=== PATIENT | female | born 1985 | race Caucasian/White ===

== ENCOUNTER 2020-08-22 10:15 | Outpatient (CLI) | payer OTHER ==
[2020-08-22 11:39] LABS: HCT - HEMATOCRIT 34.5 % (37.0-47.0); HGB - HEMOGLOBIN 11.5 g/dL (12.0-16.0); MEAN CORPUSCULAR HEMOGLOBIN 32.2 pg (27.0-31.0); MEAN CORPUSCULAR HGB CONC 33.3 g/dL (32.0-36.0); MEAN CORPUSCULAR VOLUME 96.6 fL (81.0-99.0); MEAN PLATELET VOLUME 9.7 fL (7.9-10.8); RED BLOOD COUNT 3.57 10^6/uL (4.20-5.40); RED CELL DISTRIBUTION WIDTH 12.6 % (12.0-15.0); WHITE BLOOD COUNT 9.5 x10^3/uL (4.8-10.8)
== END 2020-08-22 10:16 | disposition home or self-care (01) ==
LOC: LAB 10:15
PROVIDERS: ATTEND Advanced Practice Midwife
DX: Z34.00 Encounter for supervision of normal first pregnancy, unspecified trimester (principal)
CPT/HCPCS: 36415; 82950; 85027; 86850

== ENCOUNTER 2020-11-06 08:00 | Outpatient (CLI) | payer OTHER | END 2020-11-06 23:59 | disposition home or self-care (01) | LOC: LAB.WC 08:00 | PROVIDERS: ATTEND Nurse Practitioner Obstetrics & Gynecology | DX: Z36.85 Encounter for antenatal screening for Streptococcus B (principal) | CPT/HCPCS: 87797 ==

== ENCOUNTER 2020-11-28 22:37 | Inpatient (IN) | payer OTHER ==
[2020-11-28] MEDS ORDERED: TERBUTALINE 1 MG/ML VIAL SUBQ ONE ×2 (23:00→23:40)
[2020-11-28] MEDS ORDERED: LACTATED RINGERS 1,000 ML IV ONE (23:09)
--- NOTE | 2020-11-28 23:37 | HISTORY & PHYSICAL EXAMINATION ---
Admit History - Visit Reason Visit Reason: Contractions, Membranes rupture - : 1 Parity: 0 Premature: 0 Ectopic: 0 : 0 Care: positive: [facility] Risk/History: positive: None Complications This : positive: None Smoking Status: Never smoker - Mother's Labs Mother's Blood Type: positive: O Mother's RH: positive: Negative GBS: positive: Group B Step Negative Rubella Status: positive: Immune Review of Systems - Constitutional Constitutional: denies: Fever, Chills, Malaise - Eyes Eyes: denies: Blurred vision, Spots in vision, Dipolpia - Cardiovascular Cariovascular: denies: Chest pain, Edema - Respiratory Respiratory: denies: Cough, SOB at rest - Gastrointestinal Gastrointestinal: denies: Change in bowel habits - Integumentary Integumentary: denies: Rash, Pruritis - Neurological Neurological: denies: Headache Physical - Abdominal Exam Contraction Frequency (min/apart): 2-4 Contraction Intensity: positive: Moderate Uterine Resting Tone: positive: Soft - Monitoring Heart Rate Baseline: 140 Strip Review: positive: Category II - Presentation Presentation: positive: Vertex - Vaginal Exam Membranes: positive: Membranes ruptured Dilation (in cm): 3 Effacement (%): 80 Station: positive: -3 Cervical Position: positive: Posterior - Speculum Exam Speculum Exam Performed: positive: No Findings: positive: Gross leak Plan for Labor - Plan For Labor I expect patient to be DC'd or transferred within 96 hours.: Yes Plan for Labor: Patito is a 35yo @ 40.1wks gestation by 11wk U/S dates (unknown LMP) who presents to [facility] with c/o large gush of fluid that occurred at approximately 2200 this evening. She denied contractions initially but since her arrival she states they have increased in frequency and intensity and she is breathing through contractions. She denies vaginal bleeding. She denies feeling movement since rupture of membranes. She is supported by her partner Jw today. She has been a patient of [facility] since her transfer of care from [place] in [place]. She has received consistent care through the duration of her which has remained uncomplicated. She is noted to be Rh negative and received Rhogam per protocol at 28wks. Dating criteria: LMP unknown Initial U/S @ 11wks dates with NAHID 11/26/2020 Serial exams - agree OB Hx: G1: Current Medications: PNV; wellbutrin XL 150mg PO daily Allergies: Bactrim course: Initial U/S:US at ED visit 04/25/2020 NOT c/w LMP NAHID 11/27/2020 FINAL NAHID: 11/27/2020 O neg/Rubella IMMUNE RHOGAM- 09/11/2020 antibody neg 08/22/2020 VZV: history of - titer needed ordered 10/10 Hep C- Ordered 10/10 Genetic testing:[place] Neg (male) AFP Neg FAS: . Anterior placenta. MEGHAN wnl. Growth is reported as "concordant"Cord insertion 1.1cm from placental edge Glucola A1c 4.7- 1HR GTT 124 Influenza: declined TDAP 09/11/2020 COVID vaccine: #1 05/25/20 #2 - 06/15/20 GBS @ 37.0wks-NEGATIVE HSV: denies self and partner Breast pump Rx 09/11/2020 MOD: . Jw. Baby BOY: Byron Leroy; UNMEDICATED pp contraception: nearly 36, possibly wants more children, discussed spacing, hesitant to use hormonal method and wants to decide . Discussed contraceptive benefits of . pap: 2016- wnl. Will accept Physical exam: Normocephalic, atraumatic Heart RRR w/o M/G/R Lungs CTAB Abdomen gravid, soft, nontender FHR baseline 140s, moderate variability, no accels, recurrent late decelerations Contractions palpate moderate every 2-4 minutes with soft resting tone SVE 3/80/-3, posterior. Vertex. Continues to leak clear fluid Bilateral LE's trace edema Assessment: 35yo @ 40.1wks gestation SROM x 2 hours FHR Category II GBS neg Rh neg Plan: Admit for active management. IV fluid bolus Notified bindery production manager physician of category II heart rate tracing Terbutaline administered for cessation of contractions. Amnioinfusion initiated. beet worker physician presenting to evaluate patient.
[2020-11-28] MEDS ORDERED: SODIUM CHLORIDE 0.9% 1,000 ML IV ONE (23:40)
[2020-11-28] MEDS ORDERED: LACTATED RINGERS 1,000 ML IV SCH ×2 (23:45)
[2020-11-28] MEDS ORDERED: OXYTOCIN 10 UNIT/ML VIAL IM PRN (23:48)
[2020-11-28] MEDS ORDERED: METHYLERGONOVINE 0.2 MG/ML VIAL IM PRN (23:48)
[2020-11-28] MEDS ORDERED: CARBOPROST TROMETHAMINE 250 MCG/ML AMP IM PRN (23:48)
[2020-11-28] MEDS ORDERED: SODIUM CHLORIDE FLUSH 0.9% 10 ML SYRINGE IVP PRN (23:48)
[2020-11-28] MEDS ORDERED: LIDOCAINE-MPF 1% 30 ML VIAL ID PRN (23:48)
[2020-11-28] MEDS ORDERED: TRANEXAMIC ACID IN NACL 1,000 MG/100 ML BAG IV PRN (23:48)
[2020-11-28] MEDS ORDERED: OXYTOCIN/SODIUM CHLORIDE 500 ML IV PRN (23:48)
[2020-11-28] MEDS ORDERED: miSOPROStoL 200 MCG TABLET BC PRN (23:48)
[2020-11-28 23:58] LABS: BASOPHILS # (AUTO) 0.1 10^3/uL (0.0-0.1); BASOPHILS % (AUTO) 0.4 %; EOSINOPHILS # (AUTO) 0.1 10^3/uL (0.0-0.7); EOSINOPHILS % (AUTO) 0.8 %; HCT - HEMATOCRIT 37.8 % (37.0-47.0); HGB - HEMOGLOBIN 12.8 g/dL (12.0-16.0); LYMPHOCYTES # (AUTO) 2.1 10^3/uL (1.5-3.5); LYMPHOCYTES % (AUTO) 17.1 %; MEAN CORPUSCULAR HEMOGLOBIN 30.7 pg (27.0-31.0); MEAN CORPUSCULAR HGB CONC 33.9 g/dL (32.0-36.0); MEAN CORPUSCULAR VOLUME 90.6 fL (81.0-99.0); MEAN PLATELET VOLUME 10.8 fL (7.9-10.8); MONOCYTES % (AUTO) 8.3 %; NEUTROPHILS # (AUTO) 9.1 10^3/uL (1.5-6.6); NEUTROPHILS % (AUTO) 72.9 %; PLT - PLATELET COUNT 293 10^3/uL (130-450); RED BLOOD COUNT 4.17 10^6/uL (4.20-5.40); RED CELL DISTRIBUTION WIDTH 13.9 % (12.0-15.0); WHITE BLOOD COUNT 12.5 x10^3/uL (4.8-10.8)
[2020-11-29] MEDS ORDERED: SODIUM CHLORIDE FLUSH 0.9% 10 ML SYRINGE IVP SCH ×2 (01:00→17:00)
[2020-11-29] MEDS: TERBUTALINE 1 MG/ML VIAL SUBQ PRN ×2 (01:03→05:44)
--- NOTE | 2020-11-29 04:05 | PROVIDER PROGRESS NOTE ---
Labor Progress Note - Uterine Monitoring Uterine Monitoring Mode: positive: External toco Contraction Frequency (min/apart): 5-7 Contraction Intensity: positive: Mild Uterine Resting Tone: positive: Soft - Monitoring Monitor Mode: positive: External ultrasound Heart Rate Baseline: 130 Heart Rate Variability: positive: Moderate (6-25 bmp) Decelerations: positive: Late, Intermittent (<50% x20 min) Strip Review: positive: Category II - Labor Progress Note Labor Progress Note/Additional Text: S: Pt states she is feeling at peace with the decision to proceed with a vaginal delivery if indicated however also feels very reassured that her baby seems to have improved over the past hour. She feels her contractions are increasing in intensity but seemed to be spacing out more which correlates with tocometry. Her mood is good and she feels she will be able to rest and desires to attempt to take a nap at this time. Her Jw is supportive at the bedside and also intends to rest. O: FHR baseline 130s at present, moderate variability, no accels, intermittent late decelerations however overall reassuring at this time and significantly improved with intrauterine resuscitative measures. Contractions palpate moderate every 5-7 minutes with soft resting tone SVE deferred at this time (last SVE 3/80/-3, posterior) SROM x 6 hours Amnioinfusion currently running at 200/hr maintenance following initial 250 bolus A: 35yo @ 40.2 wks gestation by 11wk U/S FHR Category II - overall reassuring at this time GBS neg Rh negative P: Continuous monitoring Encouraged pt to rest. Discussed proceeding with delivery if terbutaline is needed again and pt agrees with that plan. Reviewed plan of care with vitreo retinal surgeon physician who is in agreement. Will notify vitreo retinal surgeon physician if FHR develops recurrent decelerations. Pt verbalized understanding and agrees to above plan. She denies further questions or concerns at this time.
[2020-11-29] MEDS ORDERED: CITRIC ACID/SODIUM CITRATE 15 ML UDC PO ONE (06:34)
--- NOTE | 2020-11-29 06:35 | PROVIDER PROGRESS NOTE ---
Labor Progress Note - Uterine Monitoring Uterine Monitoring Mode: positive: External toco Contraction Frequency (min/apart): 5-8 Contraction Intensity: positive: Moderate Uterine Resting Tone: positive: Soft - Monitoring Monitor Mode: positive: External ultrasound Heart Rate Baseline: 140 Heart Rate Variability: positive: Moderate (6-25 bmp) Accelerations: positive: Absent Decelerations: positive: Late, Variable, Intermittent (<50% x20 min) Strip Review: positive: Category II - Vaginal Exam Dilation (in cm): 3-4 Effacement (%): 90 Station: -2 Cervical Position: Midposition - Labor Progress Note Labor Progress Note/Additional Text: S: Feeling contractions but tolerating them very well and is able to talk through them and is coping very well. She wants to try to get in the tub to relax and understands we need to be able to continuously monitor her baby. She is accepting of a delivery if needed. She was able to get a little nap in and states she does not feel super tired and will be unable to sleep at this time. Her Jw is supportive at the bedside. O: FHR baseline 130s, moderate variability, no accels, recurrent late decelerations. SVE 3-4/90/-2, midposition. Vertex SROM x 8.5hrs - recent development of moderate meconium A: 35yo 2 40.2wks gestation by FHR Category II GBS neg Rh neg P: Discussed recommendation for delivery with pt who is in agreement with plan. Care handed to regional vice president life sales physician for management and continued plan of care. Proceed with delivery.
[2020-11-29] MEDS ORDERED: fentaNYL 100 MCG/2 ML VIAL ONE (06:57)
[2020-11-29] MEDS ORDERED: MORPHINE PF 5 MG/10 ML VIAL ONE (06:57)
[2020-11-29] MEDS ORDERED: OXYTOCIN 10 UNIT/ML VIAL ONE ×2 (06:57→09:03)
[2020-11-29] MEDS ORDERED: ONDANSETRON 4 MG/2 ML VIAL ONE (07:01)
--- NOTE | 2020-11-29 07:09 | ANESTHESIA ---
Pre-Anesthesia VS, & Labs - Diagnosis active labor with decels - Procedure C/Section Vital Signs: Temp Pulse Resp BP Pulse Ox 37.3 C 89 19 105/73 11/28/20 23:07 11/28/20 23:07 11/28/20 23:07 11/28/20 23:07 Height: 5 ft 6 in Weight (kg): 85.275 kg Body Mass Index: 30.3 BMI Classification: Obese - NPO >8 hours - Is Patient ?: Yes - Lab Results Current Lab Results: Laboratory Tests 11/28/20 23:15: WBC 12.5 H, RBC 4.17 L, Hgb 12.8, Hct 37.8, MCV 90.6, MCH 30.7, MCHC 33.9, RDW 13.9, Plt Count 293, MPV 10.8, Neut # (Auto) 9.1 H, Lymph # (Auto) 2.1, [place] # (Auto) 1.0, Eos # (Auto) 0.1, Baso # (Auto) 0.1, Absolute Nucleated RBC 0.00, Nucleated RBC % 0.0 11/28/20 23:15: Blood Type O NEGATIVE, Antibody Screen POSITIVE, Antibody Identification Anti-D Fish Bones: 11/28/20 23:15 Home Medications and Allergies Active Medications Carboprost Tromethamine (Carboprost Tromethamine 250 Mcg/Ml Amp) 250 mcg IM Q15M PRN PRN Reason: Step 4: Hemorrhage protocol Stop: 12/03/20 23:50 Lactated Ringer's (Lr) 1,000 mls @ 125 mls/hr IV .Q8H [facility] Last Admin: 11/29/20 05:43 Dose: 125 mls/hr Documented by: Lactated Ringer's (Lr) 1,000 mls @ 150 mls/hr IV .Q6H40M [facility] Last Admin: 11/29/20 04:03 Dose: 200 mls/hr Documented by: Oxytocin/Sodium Chloride (Pitocin/Sodium Chloride) 500 mls @ 999 mls/hr IV PRN PRN; Protocol PRN Reason: POST- HEMORR PREVENTION Stop: 12/03/20 23:50 Tranexamic Acid (Tranexamic 1,000 Mg/100ml-Nacl) 1,000 mg in 100 mls @ 600 mls/hr IV .ONCE PRN PRN Reason: EBL >1200mL and within 3hr Stop: 12/03/20 23:50 Lidocaine HCl (Lidocaine-Mpf 1% 30 Ml Vial) 30 ml ID .ONCE PRN PRN Reason: PERINEAL REPAIR Stop: 12/03/20 23:50 Methylergonovine Maleate (Methylergonovine 0.2 Mg/Ml Vial) 0.2 mg IM .ONCE PRN PRN Reason: Step 2: Hemorrhage protocol Stop: 12/03/20 23:50 Misoprostol (Misoprostol 200 Mcg Tablet) 800 mcg BC .ONCE PRN PRN Reason: Step 3: Hemorrhage protocol Stop: 12/03/20 23:50 Oxytocin (Oxytocin 10 Unit/Ml Vial) 10 unit IM .ONCE PRN PRN Reason: Step one: If no IV access Stop: 12/03/20 23:50 Sodium Chloride (Sodium Chloride Flush 0.9% 10 Ml Syringe) 10 ml IVP PRN PRN PRN Reason: NEEDED PER PROVIDER ORDERS Sodium Chloride (Sodium Chloride Flush 0.9% 10 Ml Syringe) 10 ml IVP 0100,0900,1700 HAWK Terbutaline Sulfate (Terbutaline 1 Mg/Ml Vial) 0.25 mg SUBQ PRN PRN PRN Reason: UC mgmnt Last Admin: 11/29/20 05:44 Dose: 0.25 mg Documented by: Allergies/Adverse Reactions: Allergies Allergy/AdvReac Type Severity Reaction Status Date / Time sulfamethoxazole Allergy Unknown Verified 11/29/20 02:15 [From Bactrim] trimethoprim [From Bactrim] Allergy Unknown Verified 11/29/20 02:15 Anes History & Medical History - Anesthetic History Anesthesia Complications: reports: No previous complications Family history of Anesthesia Complications: Denies Family history of Malignant Hyperthermia: Denies - Medical History Cardiovascular: reports: None Pulmonary: reports: None Gastrointestinal: reports: None Smoking Status: Never smoker - Obstetrical History : 1 Parity: 0 Events: reports: None Complications: reports: None Exam General: Alert, Oriented x3, Cooperative Dental: WNL Mouth Openin Fingerbreadth Neck Mobility: Normal Mallampati classification: I Thyromental Distance: 4-6 cm Respiratory: Lungs clear Cardiovascular: Regular rate Plan Anesthesia Type: Spinal (discussed GETA as back-up) Consent for Procedure(s) Verified and Reviewed: Yes Code Status: Attempt Resuscitation ASA classification: 2-Mild systemic disease Is this case an emergency?: Yes
--- NOTE | 2020-11-29 07:11 | PROVIDER PROGRESS NOTE ---
Subjective - Prog Note Date Prog Note Date: 11/29/20 Prog Note Time: 07:01 - Subjective Subjective: Patito is a 35yo @ 40+2 wks gestation by 11wk U/S dates (unknown LMP) who presents to [facility] with c/o large gush of fluid that occurred at a pproximately 2200 on 11/28/20. Followed by Midwifery service. At admit, she denied contractions initially but since her arrival she stated they have increased in frequency and intensity and she is breathing through contractions. She denies vaginal bleeding. She denies feeling movement since rupture of membranes. She is supported by her partner Jw today. She has been a patient of [facility] since her transfer of care from [place] in [place]. She has received consistent care through the duration of her which has remained uncomplicated. She is noted to be Rh negative and received Rhogam per protocol at 28wks. Shortly after admission, the tracing started to show recurrent decels corresponding to contractions. She was 3 cm dilated and no palpable cord. Clear fluid. IUPC had been placed and patient was undergoing amnioinfusion and administration of terbutaline. When contractions ceased, tracing returned to a category I tracing. CNM and MD discussed the possibility of at that time with patient. While was not indicated urgently at that time, we discussed that status could change rapidly. For that reason, we reviewed R/B/A to and written informed consent was obtained so that we could convert rapidly to surgical delivery. After a period of decreased contractions, EFM returned to a category I tracing. When contractions started again, Cat I tracing was maintained for about 2 hours. At that time, recurrent decels emerged and were present for most contractions. No significant change in cervical exam at that time. Obstetrics was consulted and the decision was made to proceed with primary for intolerance of labor. Patient and partner were in agreement. OR team activated for delivery. Objective - Vital Signs/Intake & Output Vital Signs: Vital Signs x48h Temp Pulse Resp BP 11/28/20 23:07 99.1 F 89 19 105/73 Intake & Output: Intake & Output 11/26/20 11/27/20 11/28/20 11/29/20 23:59 23:59 23:59 23:59 Intake Total 1000 Output Total 2 Balance 1000 -2 - Lab Results Fish Bones: 11/28/20 23:15 Other Labs: Lab Results x24hrs 11/28/20 11/28/20 Range/Units 23:15 23:15 WBC 12.5 H (4.8-10.8) x10^3/uL RBC 4.17 L (4.20-5.40) 10^6/uL Hgb 12.8 (12.0-16.0) g/dL Hct 37.8 (37.0-47.0) % MCV 90.6 (81.0-99.0) fL MCH 30.7 (27.0-31.0) pg MCHC 33.9 (32.0-36.0) g/dL RDW 13.9 (12.0-15.0) % Plt Count 293 (130-450) 10^3/uL MPV 10.8 (7.9-10.8) fL Neut # (Auto) 9.1 H (1.5-6.6) 10^3/uL Lymph # (Auto) 2.1 (1.5-3.5) 10^3/uL Grant # (Auto) 1.0 (0.0-1.0) 10^3/uL Eos # (Auto) 0.1 (0.0-0.7) 10^3/uL Baso # (Auto) 0.1 (0.0-0.1) 10^3/uL Absolute Nucleated RBC 0.00 x10^3/uL Nucleated RBC % 0.0 /100WBC Blood Type O NEGATIVE Antibody Screen POSITIVE Antibody Identification Anti-D
[2020-11-29] MEDS ORDERED: NALBUPHINE 10 MG/ML AMP IVP PRN ×2 (07:45→07:46)
[2020-11-29] MEDS ORDERED: ePHEDrine 50 MG/ML VIAL IVP PRN ×2 (07:45→07:46)
[2020-11-29] MEDS ORDERED: MORPHINE PF 5 MG/10 ML VIAL IT ONE (07:45)
[2020-11-29] MEDS ORDERED: NALOXONE 0.4 MG/ML VIAL IVP PRN ×2 (07:45→07:46)
[2020-11-29] MEDS ORDERED: ONDANSETRON 4 MG/2 ML VIAL IVP PRN ×2 (07:45→07:46)
[2020-11-29] MEDS ORDERED: diphenhydrAMINE INJ 50 MG/ML VIAL IVP PRN ×2 (07:45→07:46)
[2020-11-29] MEDS ORDERED: METOCLOPRAMIDE 10 MG/2 ML VIAL IVP PRN ×2 (07:45→07:46)
[2020-11-29] MEDS ORDERED: fentaNYL 100 MCG/2 ML VIAL IT ONE (07:45)
[2020-11-29] MEDS ORDERED: KETOROLAC 30 MG/ML VIAL ONE (08:31)
[2020-11-29] MEDS ORDERED: BUPIVACAINE 0.25% PF 30 ML VIAL ONE (08:37)
[2020-11-29] MEDS ORDERED: BUPIVACAINE 0.25% PF 30 ML VIAL SUBQ ONE ×2 (08:51)
[2020-11-29] MEDS ORDERED: LACTATED RINGERS 1,000 ML IV ONE (09:16)
[2020-11-29] MEDS ORDERED: OXYTOCIN/SODIUM CHLORIDE 500 ML IV PRN (09:20)
[2020-11-29] MEDS ORDERED: SIMETHICONE CHEW 80 MG TABLET PO PRN (09:20)
[2020-11-29] MEDS ORDERED: SODIUM CHLORIDE FLUSH 0.9% 10 ML SYRINGE IVP PRN (09:20)
[2020-11-29] MEDS ORDERED: ONDANSETRON ODT 4 MG TABLET TL PRN (09:20)
--- NOTE | 2020-11-29 09:21 | ANESTHESIA POST OP EVALUATION ---
Anesthesia Post Eval - Post Anesthesia Eval Vitals: Last Vital Signs Temp 37.3 C 11/28/20 23:07 Pulse 89 11/28/20 23:07 Resp 19 11/28/20 23:07 BP 105/73 11/28/20 23:07 Pulse Ox CV Function Including HR & BP: Stable Pain Control: Satisfactory Nausea & Vomiting: Negative Mental Status: Baseline Respiratory Status: Airway Patent Hydration Status: Satisfactory Anesthesia Complications: None
--- NOTE | 2020-11-29 09:23 | OPERATIVE REPORT ---
Operative Report - General Admit Date: 11/28/20 Procedure Date: 11/29/20 Planned Procedure: Primary low transverse Pre-Op Diagnosis: intolerance of labor, IUP at 40+4 wga, SROM Procedure Performed: Primary low transverse Post Op Diagnosis: Same and delivery of term gestation; complex nuchal cord - Procedure Note Primary Surgeon: Kesha Nicholson MD Secondary Surgeon: YANDY Cordova CNM Anesthesia Provider: Rg Armenta CRNA with ELYSE Restrepo Anesthesia Technique: Spinal Pathology: Placenta for discard/to patient for home management IV Fluids (mL): 2,000 Estimated Blood Loss (mL): 750 Urine Output (mL): 150 Indications: Patito is a 35yo @ 40+2 wks gestation by 11wk U/S dates (unknown LMP) who presents to [facility] with c/o large gush of fluid that occurred at approximately 2200 on 11/28/20. Followed by Midwifery service. At admit, she denied contractions initially but since her arrival she stated they have increased in frequency and intensity and she is breathing through contractions. She denies vaginal bleeding. She denies feeling movement since rupture of membranes. She is supported by her partner Jw today. She has been a patient of [facility] since her transfer of care from [place] in [place]. She has received consistent care through the duration of her which has remained uncomplicated. She is noted to be Rh negative and received Rhogam per protocol at 28wks. Shortly after admission, the tracing started to show recurrent decels corresponding to contractions. She was 3 cm dilated and no palpable cord. Clear fluid. IUPC had been placed and patient was undergoing amnioinfusion and administration of terbutaline. When contractions ceased, tracing returned to a category I tracing. HAZEL and discussed the possibility of at that time with patient. While was not indicated urgently at that time, we discussed that status could change rapidly. For that reason, we reviewed R/B/A to and written informed consent was obtained so that we could convert rapidly to surgical delivery. After a period of decreased contractions, EFM returned to a category I tracing. When contractions started again, Cat I tracing was maintained for about 2 hours. At that time, recurrent decels emerged and were present for most contractions. No significant change in cervical exam at that time. Obstetrics was consulted and the decision was made to proceed with primary for intolerance of labor. Patient and partner were in agreement. OR team activated for delivery. Findings: Male infant in vertex presentation with double nuchal cord, bandolier cord, and the cord further wrapped around the left arm. Weight pending. Normal appearing uterus, tubes, and ovaries. Complications: none - Other Other Information/Narrative: Risks benefits and alternatives of the procedure were discussed. Written informed consent was obtained. Patient was taken to the operating room where spinal anesthesia was placed and found to be adequate. She was prepped and draped in the usual sterile fashion in the dorsal supine position with a leftward tilt. Crocker catheter was in place. SCDs were in place and activated. Cefazolin 2 g IV was given as a preoperative antibiotic. Preoperative timeout was performed. A Pfannenstiel incision was made in the skin with a scalpel and carried through the underlying layer of fascia in a combination of sharp and blunt dissection. The fascia was incised in the midline, and the incision was extended laterally with the Desai scissors. The superior aspect of the fascial incision was grasped with the [place] clamps, elevated, and the underlying rectus muscles were dissected off bluntly and sharply using the Desai scissors. Attention was then turned to the inferior aspect of the incision which in a similar fashion was grasped, tented up with [place] clamps, and the underlying rectus muscles dissected off bluntly and sharply using Desai scissors. The rectus muscles were then in the midline. The peritoneum was identified, tented up, and entered bluntly. The peritoneal incision was extended superiorly and inferiorly with good visualization of the bladder. The bladder that blade was then inserted. A bladder flap was not created. The lower uterine segment of the uterus was identified, and incised in a transverse fashion with a scalpel. The uterus was entered bluntly. The uterine incision was extended in a craniocaudal fashion by manual stretch. The bladder blade was removed. The was delivered from from vertex position. Baby was wrapped in a warm sterile towel. Delayed cord clamping was performed. After cessation of pulsations, the cord was clamped x2 and cut. The infant was handed off to the waiting pediatricians. The placenta was removed with manual expression. The uterus was NOT exteriorized and cleared of all clots cand debris via manual swipe using Ray-Philipp x2. The uterine incision was then repaired in a running locked fashion using 0 Vicryl suture. The incision was reinforced with a running imbricating layer again using 0-Vicryl suture. Excellent hemostasis was obtained. The gutters were cleared of all clots and debris. The pelvis was irrigated with sloppy wet lap sponges. The uterine defect was well visualized in normal anatomic position it was noted again to be hemostatic. The peritoneum was then reapproximated with 2-0 Vicryl in a running fashion. The rectus muscles were then reapproximated using interrupted [id number] sutures using 2-0 Chromic. Good hemostasis was noted. The fascia was then closed using 0 Vicryl in a running fashion starting from the left lateral edge to the midline. A second suture was used to close the fascia in a running fashion starting from the right lateral edge and meeting in the midline, again using 0-Vicryl. The subcutaneous tissue was then irrigated and closed using 2-0 chromic in a running subcutaneous suture. Skin was closed in a running subcuticular suture using 4-0 Monocryl. Steri-Strips were applied to reinforce the incision and dressing was applied. Procedure was well-tolerated and without complication. Sponge lap and needle counts were correct x2. Patient was taken to recovery room in stable condition. Paz Polk CNM, assisted with retraction, delivery of the , and suturing.
[2020-11-29] MEDS ORDERED: LACTATED RINGERS 1,000 ML IV SCH (10:00)
[2020-11-29] MEDS: ACETAMINOPHEN 500 MG TABLET PO SCH ×2 (11:12→17:04)
[2020-11-29] MEDS: KETOROLAC 15 MG/ML VIAL IVP SCH ×3 (11:12→21:01)
--- NOTE | 2020-11-29 15:25 | PROVIDER PROGRESS NOTE ---
Subjective - Prog Note Date Prog Note Date: 11/29/20 Prog Note Time: 15:24 - Subjective Subjective: Patientis POD#0 s/p primary LTCS for intoleranceof labor Doing well Pain well managed Tolerating po Crocker remains in place; UOP adequate Has not yet ambulated Pressure dressing placed for oozing but also reflecs 20 cc of bupivicaine injected immediately prior to placing dressing Cont with routine post op care Objective - Vital Signs/Intake & Output Vital Signs: Vital Signs x48h Temp Pulse Pulse Pulse Resp BP BP 11/29/20 11:58 98.6 F 73 16 92/64 11/29/20 11:00 60 99 H 90/58 L 11/29/20 10:30 69 16 95/58 L 11/29/20 09:59 97.7 F 70 17 94/61 11/29/20 09:45 73 19 97/67 11/29/20 09:38 67 22 101/70 11/29/20 09:33 98.8 F 74 14 106/70 11/29/20 09:29 70 20 103/69 11/29/20 09:20 70 17 96/70 11/29/20 09:16 98.6 F 73 18 92/63 Pulse Ox 11/29/20 11:58 100 11/29/20 11:00 11/29/20 10:30 99 11/29/20 09:59 99 11/29/20 09:45 99 11/29/20 09:38 99 11/29/20 09:33 100 11/29/20 09:29 100 11/29/20 09:20 100 11/29/20 09:16 100 Intake & Output: Intake & Output 11/26/20 11/27/20 11/28/20 11/29/20 23:59 23:59 23:59 23:59 Intake Total 1000 120 Output Total 462 Balance 1000 -342 - Lab Results Fish Bones: 11/28/20 23:15 Other Labs: Lab Results x24hrs 11/29/20 11/28/20 11/28/20 Range/Units 11:40 23:15 23:15 WBC 12.5 H (4.8-10.8) x10^3/uL RBC 4.17 L (4.20-5.40) 10^6/uL Hgb 12.8 (12.0-16.0) g/dL Hct 37.8 (37.0-47.0) % MCV 90.6 (81.0-99.0) fL MCH 30.7 (27.0-31.0) pg MCHC 33.9 (32.0-36.0) g/dL RDW 13.9 (12.0-15.0) % Plt Count 293 (130-450) 10^3/uL MPV 10.8 (7.9-10.8) fL Neut # (Auto) 9.1 H (1.5-6.6) 10^3/uL Lymph # (Auto) 2.1 (1.5-3.5) 10^3/uL Pope # (Auto) 1.0 (0.0-1.0) 10^3/uL Eos # (Auto) 0.1 (0.0-0.7) 10^3/uL Baso # (Auto) 0.1 (0.0-0.1) 10^3/uL Absolute Nucleated RBC 0.00 x10^3/uL Nucleated RBC % 0.0 /100WBC Blood Type O NEGATIVE O NEGATIVE Weak D (Du) WEAK-D NEGATIVE Antibody Screen POSITIVE Antibody Identification Anti-D Maternal Bleed NEGATIVE (NEGATIVE)
[2020-11-29] MEDS ORDERED: RHO(D) IMMUNE GLOBULIN 300 MCG SYRINGE IVP ONE (15:31)
[2020-11-29] MEDS: DOCUSATE SODIUM 100 MG CAPSULE PO SCH (21:01)
[2020-11-30] MEDS: ACETAMINOPHEN 500 MG TABLET PO SCH ×3 (01:00→16:56)
[2020-11-30] MEDS: KETOROLAC 15 MG/ML VIAL IVP SCH (02:55)
[2020-11-30 06:09] LABS: BASOPHILS % (AUTO) 0.3 %; EOSINOPHILS # (AUTO) 0.1 10^3/uL (0.0-0.7); EOSINOPHILS % (AUTO) 0.6 %; HCT - HEMATOCRIT 26.7 % (37.0-47.0); HGB - HEMOGLOBIN 8.9 g/dL (12.0-16.0); LYMPHOCYTES # (AUTO) 1.5 10^3/uL (1.5-3.5); LYMPHOCYTES % (AUTO) 13.5 %; MEAN CORPUSCULAR HEMOGLOBIN 30.9 pg (27.0-31.0); MEAN CORPUSCULAR HGB CONC 33.3 g/dL (32.0-36.0); MEAN CORPUSCULAR VOLUME 92.7 fL (81.0-99.0); MEAN PLATELET VOLUME 10.2 fL (7.9-10.8); MONOCYTES % (AUTO) 8.7 %; NEUTROPHILS # (AUTO) 8.4 10^3/uL (1.5-6.6); NEUTROPHILS % (AUTO) 76.4 %; PLT - PLATELET COUNT 214 10^3/uL (130-450); RED BLOOD COUNT 2.88 10^6/uL (4.20-5.40); RED CELL DISTRIBUTION WIDTH 14.5 % (12.0-15.0)
[2020-11-30] MEDS: DOCUSATE SODIUM 100 MG CAPSULE PO SCH (09:05)
[2020-11-30] MEDS: IBUPROFEN 600 MG TABLET PO SCH ×3 (09:05→23:00)
--- NOTE | 2020-11-30 16:29 | PROVIDER PROGRESS NOTE ---
Subjective - Prog Note Date Prog Note Date: 11/30/20 Prog Note Time: 16:27 - Subjective Subjective: Patient is doing well. She has been up and ambulating. Voiding. No pain at rest. Manageable pain with movement. Avoiding oxycodone. VB minimal. BF going well. Tolerating po. Objective - Vital Signs/Intake & Output Reviewed Vital Signs: Yes Vital Signs: Vital Signs x48h Temp Pulse Resp BP Pulse Ox 11/30/20 12:30 98.2 F 67 16 97/58 L 100 Intake & Output: Intake & Output 11/27/20 11/28/20 11/29/20 11/30/20 23:59 23:59 23:59 23:59 Intake Total 1000 1670 986.6 Output Total 2687 Balance 1000 -1017 986.6 - Objective General Appearance: positive: No acute distress Respiratory: positive: No respiratory distress Cardiovascular: positive: Other (RR) Peripheral Pulses: 2+ Dorsalis pedis (R), 2+ Dorsalis pedis (L) Abdomen: positive: Other (Appropriately tender, FF below umbi Dressing with dried ss staining but CDI) Skin: positive: Color nml Extremities: positive: Non-tender, No pedal edema Neurologic/Psychiatric: positive: Oriented x3 - Lab Results Fish Bones: 11/30/20 06:03 Other Labs: Lab Results x24hrs 11/30/20 11/30/20 Range/Units 06:03 05:00 WBC 11.0 H (4.8-10.8) x10^3/uL RBC 2.88 L (4.20-5.40) 10^6/uL Hgb 8.9 L (12.0-16.0) g/dL Hct 26.7 L (37.0-47.0) % MCV 92.7 (81.0-99.0) fL MCH 30.9 (27.0-31.0) pg MCHC 33.3 (32.0-36.0) g/dL RDW 14.5 (12.0-15.0) % Plt Count 214 (130-450) 10^3/uL MPV 10.2 (7.9-10.8) fL Neut # (Auto) 8.4 H (1.5-6.6) 10^3/uL Lymph # (Auto) 1.5 (1.5-3.5) 10^3/uL [place] # (Auto) 1.0 (0.0-1.0) 10^3/uL Eos # (Auto) 0.1 (0.0-0.7) 10^3/uL Baso # (Auto) 0.0 (0.0-0.1) 10^3/uL Absolute Nucleated RBC 0.00 x10^3/uL Nucleated RBC % 0.0 /100WBC Blood Type Recheck O NEGATIVE Assessment/Plan - Problem List (1) delivery delivered Impression: POD#1 Patient is doing well Routine postop management Anticipate DC home in am. Rhogam given
[2020-11-30] MEDS: oxyCODONE 5 MG TABLET PO PRN ×2 (16:56→23:00)
[2020-12-01] MEDS: ACETAMINOPHEN 500 MG TABLET PO SCH ×2 (03:48→13:39)
[2020-12-01] MEDS: oxyCODONE 5 MG TABLET PO PRN ×2 (04:47→13:40)
[2020-12-01 05:46] LABS: BASOPHILS % (AUTO) 0.4 %; EOSINOPHILS # (AUTO) 0.2 10^3/uL (0.0-0.7); EOSINOPHILS % (AUTO) 1.5 %; HCT - HEMATOCRIT 27.4 % (37.0-47.0); HGB - HEMOGLOBIN 9.1 g/dL (12.0-16.0); LYMPHOCYTES # (AUTO) 1.8 10^3/uL (1.5-3.5); LYMPHOCYTES % (AUTO) 16.2 %; MEAN CORPUSCULAR HEMOGLOBIN 31.2 pg (27.0-31.0); MEAN CORPUSCULAR HGB CONC 33.2 g/dL (32.0-36.0); MEAN CORPUSCULAR VOLUME 93.8 fL (81.0-99.0); MEAN PLATELET VOLUME 9.8 fL (7.9-10.8); MONOCYTES # (AUTO) 0.9 10^3/uL (0.0-1.0); MONOCYTES % (AUTO) 8.3 %; PLT - PLATELET COUNT 214 10^3/uL (130-450); RED BLOOD COUNT 2.92 10^6/uL (4.20-5.40); RED CELL DISTRIBUTION WIDTH 14.5 % (12.0-15.0); WHITE BLOOD COUNT 10.9 x10^3/uL (4.8-10.8)
[2020-12-01] MEDS: IBUPROFEN 600 MG TABLET PO SCH ×2 (07:38→13:38)
[2020-12-01 09:11] VITALS: BP 99/56
--- NOTE | 2020-12-01 10:22 | Discharge Plan ---
Discharge Plan Problem Reviewed?: Yes Disposition: Home, Self Care Condition: Good Prescriptions: Acetaminophen [Acetaminophen Extra Strength] 1,000 mg PO Q8H PRN #60 tablet PRN Reason: Pain Docusate Sodium 100Mg Capsule [Colace 100Mg Capsule] 100 - 200 mg PO BID PRN #60 cap PRN Reason: Constipation Ibuprofen [Motrin] 600 mg PO Q6H PRN #60 tab PRN Reason: Pain oxyCODONE [Roxicodone] 2.5 - 5 mg PO Q4H PRN #24 tablet PRN Reason: Severe Pain Diet: Regular Plan of Treatment: Ibuprofen 600 mg by mouth every 6 hours as needed for pain Acetaminophen 500-1000 mg by mouth every 8 hours as needed for pain Docusate 100-200 mg by mouth twice a day as needed for constipation Oxycodone 2.5-5 mg by mouth every 4 hours as needed for pain Additional Instructions or Follow Up instructions: Nothing in the vagina for 6 weeks: No intercourse, tampons, douching Call for: -Fever greater than 100.5 -Pain that does not improve with pain medication -Heavy bleeding in which you are soaking a pad an hour for 2 hours in a row -Incision becomes hot, hard, red, starts to open, or leaks foul smelling fluid No lifting more than 10# for 4 weeks [address] while on narcotics Ok to shower. Let water run over the incision. Do not soap, scrub, or apply lotion. Pat dry with a clean towel or melissa a chair car attendant. The surgical stickers will start to peel off and you can remove them when they do. Otherwise, the provider will remove them at your one week follow-up appointment. OK to use an unscented sanitary napkin or clean washcloth to keep the incision dry if the belly folds over the incision. No Smoking: If you smoke, Please STOP! Call for help. Follow-up with: Fadumo Nicholson MD [Provider Admit Priv/Credential] -
--- NOTE | 2020-12-01 10:23 | DISCHARGE SUMMARY ---
"Discharge Summary Admit Date: 11/28/20 Discharge Date: 12/01/20 Discharging Provider: Bharat Condition at Discharge: Good Discharge Disposition: 01 Home, Self Care - DIAGNOSES Admission Diagnoses: IUP at 40+1 wga Spontaneous rupture of membranes Discharge Diagnoses with Status of Each Condition: Same and delivery of term gestation delivery - HPI History of Present Illness: Patito is a 35yo @ 40.1wks gestation by 11wk U/S dates (unknown LMP) who presents to [facility] with c/o large gush of fluid that occurred at approximately 2200 this evening. She denied contractions initially but since her arrival she states they have increased in frequency and intensity and she is breathing through contractions. She denies vaginal bleeding. She denies feeling movement since rupture of membranes. She is supported by her partner Jw pérez. She has been a patient of [facility] since her transfer of care from [place] in [place]. She has received consistent care through the duration of her which has remained uncomplicated. She is noted to be Rh negative and received Rhogam per protocol at 28wks. - CONSULTS | PROCEDURES Procedures: Primary low transverse - HOSPITAL COURSE Hospital Course: Patito is a 35yo @ 40+2 wks gestation by 11wk U/S dates (unknown LMP) who presents to [facility] with c/o large gush of fluid that occurred at approximately 2200 on 11/28/20. LABOR COURSE: Followed and admitted by Midwifery service. At admit, she denied contractions initially but since her arrival she stated they have increased in frequency and intensity and she is breathing through contractions. She denies vaginal bleeding. She denies feeling movement since rupture of membranes. She has been a patient of [facility] since her transfer of care from [place] in [place]. She has received consistent care through the duration of her which has remained uncomplicated. She is noted to be Rh negative and received Rhogam per protocol at 28wks. Shortly after admission, the tracing started to show recurrent decels corresponding to contractions. She was 3 cm dilated and no palpable cord. Clear fluid. IUPC had been placed and patient was undergoing amnioinfusion and administration of terbutaline. When contractions ceased, tracing returned to a category I tracing. HAZEL and discussed the possibility of at that time with patient. While was not indicated urgently at that time, we discussed that status could change rapidly. For that reason, we reviewed R/B/A to and written informed consent was obtained so that we could convert rapidly to surgical delivery. After a period of decreased contractions, EFM returned to a category I tracing. When contractions started again, Cat I tracing was maintained for about 2 hours. At that time, recurrent decels emerged and were present for most contractions. No significant change in cervical exam at that time. Obstetrics was consulted and the decision was made to proceed with primary for intolerance of labor. Patient and partner were in agreement. OR team activated for delivery. PROCEDURE: Patient underwent a primary low transverse for intolerance of labor. Procedure was uncomplicated. Patient delivered a male from vertex presentation with double nuchal cord, bandolier cord, and the cord further wrapped around the left arm. Weight 3155g and Apgars 8/9. Normal appearing uterus, tubes, and ovaries. POSTOPERATIVE COURSE: Uncomplicated. Mother received Rhogam for Rh incompatibility. Patient was meeting goals for discharge by postoperative day #2. - ALLERGIES Allergies/Adverse Reactions: Allergies Allergy/AdvReac Type Severity Reaction Status Date / Time sulfamethoxazole Allergy Unknown Verified 11/29/20 02:15 [From Bactrim] trimethoprim [From Bactrim] Allergy Unknown Verified 11/29/20 02:15 - MEDICATIONS Home Medications: Ambulatory Orders Medication Instructions Recorded Confirmed Acetaminophen [Acetaminophen Extra 1,000 mg PO Q8H PRN #60 tablet 12/01/20 Strength] Ascorbic Acid [Vitamin C] 250 mg PO BID #60 tablet 12/01/20 Docusate Sodium 100Mg Capsule 100 - 200 mg PO BID PRN #60 cap 12/01/20 [Colace 100Mg Capsule] Ferrous Gluconate 324 mg PO BID #60 tablet 12/01/20 Ibuprofen [Motrin] 600 mg PO Q6H PRN #60 tab 12/01/20 oxyCODONE [Roxicodone] 2.5 - 5 mg PO Q4H PRN #24 tablet 12/01/20 - PHYSICAL EXAM AT DISCHARGE General Appearance: positive: No acute distress Neck: positive: Nml inspection Respiratory: positive: No respiratory distress Cardiovascular: positive: Other (RR) Peripheral Pulses: positive: 2+ Abdomen: positive: Other (FF below umbi. S&NT/ND Dressing removed and steris are in place, mild ss staining, otherwise CDI) Skin: positive: Color nml Extremities: positive: Non-tender, No pedal edema - LABS Result Diagrams: 12/01/20 05:40 - FOLLOW UP Follow Up: [address] Nicholson - TIME SPENT Time Spent in Discharge (Minutes): 30"
[2020-12-01] MEDS: DOCUSATE SODIUM 100 MG CAPSULE PO SCH (13:41)
== END 2020-12-01 14:00 | disposition home or self-care (01) | DRG 788 ==
LOC: WFO 22:37 → FBP 22:38 → WFO 23:47 → FBP 23:48
PROVIDERS: ADMIT Nurse Practitioner Obstetrics & Gynecology; ATTEND Obstetrics & Gynecology
PROC: 10D00Z1 Extraction of Products of Conception, Low, Open Approach (ICD-10-PCS; principal; 2020-11-28)
PROC: 3E0E7GC Introduction of Other Therapeutic Substance into Products of Conception, Via Natural or Artificial Opening (ICD-10-PCS; 2020-11-28)
DX: O42.02 Full-term premature rupture of membranes, onset of labor within 24 hours of rupture (principal); Z3A.40 40 weeks gestation of pregnancy; Z37.0 Single live birth; O99.344 Other mental disorders complicating childbirth; F41.9 Anxiety disorder, unspecified; F32.9 Major depressive disorder, single episode, unspecified; O75.89 Other specified complications of labor and delivery; Z67.41 Type O blood, Rh negative; O76 Abnormality in fetal heart rate and rhythm complicating labor and delivery; O77.0 Labor and delivery complicated by meconium in amniotic fluid; O48.0 Post-term pregnancy; O69.1XX0 Labor and delivery complicated by cord around neck, with compression, not applicable or unspecified; Z79.899 Other long term (current) drug therapy
CPT/HCPCS: 36415; 83033; 85025; 86850; 86870; 86900; 86901; A9270; J2274; J7120

== ENCOUNTER 2020-12-03 10:59 | Outpatient (CLI) | payer OTHER | END 2020-12-03 12:15 | disposition home or self-care (01) | LOC: WFO 10:59 → FBP 11:05 → WFO 12:15 | PROVIDERS: ATTEND Obstetrics & Gynecology | DX: Z39.1 Encounter for care and examination of lactating mother (principal) ==

== ENCOUNTER 2020-12-16 18:26 | Emergency (ER) | payer OTHER ==
[2020-12-16 18:58] LABS: BILIRUBIN,URINE NEGATIVE (NEGATIVE); GLUCOSE, URINE (UA) NEGATIVE (NEGATIVE); KETONES,URINE (UA) NEGATIVE (NEGATIVE); LEUKOCYTE ESTERASE, URINE NEGATIVE (NEGATIVE); NITRITE,URINE NEGATIVE (NEGATIVE); OCCULT BLOOD,URINE NEGATIVE (NEGATIVE); PROTEIN,URINE NEGATIVE (NEGATIVE); UROBILINOGEN,URINE 0.2 (NORMAL) E.U./dL (NORMAL)
--- NOTE | 2020-12-16 18:59 | ED Physician Documentation ---
ED Addendum - Addendum Addendum: 12/16/20 18:57 The patient seen briefly prior to change of shift with complaint of intermittent left lower quadrant abdominal pain particularly over the last several days. She has had some dysuria and frequency of urine since her with Crocker catheter 2 weeks ago. Continues with dysuria and frequency. This is separate and timing from the left lower abdominal sharp pains intermittently. No nausea vomiting or diarrhea. She states her vaginal bleeding has decreased steadily and is minimal now. No fevers. No URI symptoms. She has not had any drainage redness or swelling at the site. We will start with a urine test. Her abdominal wound is well-healing without any redness or swelling or drainage. There is some tenderness left lower quadrant area without any masses. We will start with urine test, his blood count and ultrasound to evaluate for any loculated fluid such as seroma and also any ovarian abnormality on the left.
[2020-12-16 19:00] LABS: CLARITY,URINE CLEAR (CLEAR)
[2020-12-16 19:04] LABS: BASOPHILS # (AUTO) 0.1 10^3/uL (0.0-0.1); BASOPHILS % (AUTO) 0.5 %; EOSINOPHILS # (AUTO) 0.2 10^3/uL (0.0-0.7); EOSINOPHILS % (AUTO) 2.2 %; HCT - HEMATOCRIT 33.5 % (37.0-47.0); HGB - HEMOGLOBIN 10.9 g/dL (12.0-16.0); LYMPHOCYTES # (AUTO) 2.3 10^3/uL (1.5-3.5); LYMPHOCYTES % (AUTO) 25.1 %; MEAN CORPUSCULAR HEMOGLOBIN 29.5 pg (27.0-31.0); MEAN CORPUSCULAR HGB CONC 32.5 g/dL (32.0-36.0); MEAN CORPUSCULAR VOLUME 90.5 fL (81.0-99.0); MEAN PLATELET VOLUME 8.8 fL (7.9-10.8); MONOCYTES # (AUTO) 0.7 10^3/uL (0.0-1.0); MONOCYTES % (AUTO) 7.1 %; NEUTROPHILS % (AUTO) 64.9 %; PLT - PLATELET COUNT 505 10^3/uL (130-450); RED CELL DISTRIBUTION WIDTH 13.5 % (12.0-15.0); WHITE BLOOD COUNT 9.2 x10^3/uL (4.8-10.8)
[2020-12-16 19:13] LABS: CALCIUM 9.9 mg/dL (8.5-10.3); CREATININE 0.7 mg/dL (0.4-1.0); POTASSIUM 4.3 mmol/L (3.5-5.0)
--- NOTE | 2020-12-16 20:20 | Ultrasound Report ---
PROCEDURE: Pelvic w/Transvag+Doppler Comp INDICATIONS: LLQ abd pains, 2 wks post c-sec TECHNIQUE: Real-time scanning was performed of the pelvic organs, with image documentation. Additional endovagi nal scanning was necessary due to incomplete visualization of the adnexal and endometrial structures by transabdominal scanning. COMPARISON: None. FINDINGS: No pathologic free abdominal or pelvic fluid. Uterus: Uterus is normal in size at 11.6 x 6.5 x 8.6. cm. The endometrium measures 7.5 mm in combin ed thickness. Ovaries: Grossly unremarkable. IMPRESSION: No acute process. Reviewed by: Maame Mcgrath MD on 12/16/2020 8:18 PM PDT Approved by: Maame Mcgrath MD on 12/16/2020 8:18 PM PDT Station ID: [id number]
--- NOTE | 2020-12-16 20:22 | ED Physician Documentation ---
PD HPI ABD PAIN - Stated complaint Stated Complaint: FEMALE /POST OP - Chief complaint Chief Complaint: Abd Pain - History obtained from History obtained from: Patient - History of Present Illness Timing - onset: How many days ago (3) Timing - duration: Seconds Timing - details: Gradual onset, Still present, Waxing and waning Quality: Sharp, Pain Location: LLQ Improved by: Other (brief episodes) Worsened by: Palpation Associated symptoms: Constipation. No: Fever, Nausea, Vomiting, Hematemesis, Diarrhea Similar symptoms before: Has not had sx before Recently seen: Surgery - Additional information Additional information: 35-year-old female has had a section done 2 weeks ago and she had taken some oxycodone she is not been taking it for several days she has developed some left lower quadrant abdominal cramping pain that is brief in nature with a dull ache continuous. She is developed some urinary symptoms associated with this with some burning on urination and irritation. She has not had a fever nausea or vomiting she does not feel particularly ill. She states the episodes are brief and she has not experienced these before. She does state that she had some constipation and she has stopped taking her oxycodone. Review of Systems Constitutional: denies: Fever, Chills Eyes: denies: Decreased vision Ears: denies: Ear pain Nose: denies: Congestion Throat: denies: Sore throat Cardiac: denies: Chest pain / pressure Respiratory: denies: Dyspnea, Cough GI: reports: Abdominal Pain, Constipation. 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 - Present Medications Home Medications: Ambulatory Orders Medication Instructions Recorded Confirmed Acetaminophen [Acetaminophen Extra 1,000 mg PO Q8H PRN #60 tablet 12/01/20 Strength] Acetaminophen [Acetaminophen Extra 1,000 mg PO Q8H PRN #60 tablet 12/01/20 12/16/20 Strength] Ascorbic Acid [Vitamin C] 250 mg PO BID #60 tablet 12/01/20 Ascorbic Acid [Vitamin C] 250 mg PO BID 2 Days #60 tablet 12/01/20 12/16/20 Docusate Sodium 100Mg Capsule 100 - 200 mg PO BID PRN #60 cap 12/01/20 [Colace 100Mg Capsule] Docusate Sodium 100Mg Capsule 100 - 200 mg PO BID PRN #60 cap 12/01/20 12/16/20 [Colace 100Mg Capsule] Ferrous Gluconate 324 mg PO BID #60 tablet 12/01/20 Ferrous Gluconate 324 mg PO BID #60 tablet 12/01/20 12/16/20 Ibuprofen [Motrin] 600 mg PO Q6H PRN #60 tab 12/01/20 12/16/20 oxyCODONE [Roxicodone] 2.5 - 5 mg PO Q4H PRN #24 tablet 12/01/20 12/16/20 - Allergies Allergies/Adverse Reactions: Allergies Allergy/AdvReac Type Severity Reaction Status Date / Time sulfamethoxazole Allergy Unknown Verified 12/16/20 18:57 [From Bactrim] trimethoprim [From Bactrim] Allergy Unknown Verified 12/16/20 18:57 - Social History Does the pt smoke?: No Smoking Status: Never smoker Does the pt drink ETOH?: No - Immunizations Immunizations are current?: Yes - POLST Patient has POLST: No PD ED PE NORMAL - Vitals Vital signs reviewed: Yes (normal ) - General General: Alert and oriented X 3, No acute distress, Well developed/nourished - HEENT HEENT: Atraumatic, PERRL, EOMI - Respiratory Respiratory: No respiratory distress - Abdomen Abdomen: Normal bowel sounds, Soft, Non distended, No organomegaly, Other (mild LLQ tendernes no garding no peritoneal signs. ) - Back Back: No CVA TTP, No spinal TTP - Derm Derm: Normal color, Warm and dry, No rash - Extremities Extremities: No deformity, No edema - Neuro Neuro: Alert and oriented X 3, venue manager 2-12 intact, No motor deficit, No sensory deficit, Normal speech Eye Opening: Spontaneous Motor: Obeys Commands Verbal: Oriented GCS Score: 15 - Psych Psych: Normal mood, Normal affect Results - Vitals Vitals: Vital Signs - 24 hr 12/16/20 12/16/20 18:32 18:43 Heart Rate 85 88 Respiratory 18 18 Rate Blood Pressure 110/77 118/60 O2 Saturation 98 Oxygen O2 Source Room air - Labs Labs: Laboratory Tests 12/16/20 12/16/20 12/16/20 18:43 19:00 19:00 WBC 9.2 RBC 3.70 L Hgb 10.9 L Hct 33.5 L MCV 90.5 MCH 29.5 MCHC 32.5 RDW 13.5 Plt Count 505 H MPV 8.8 Neut # (Auto) 6.0 Lymph # (Auto) 2.3 [place] # (Auto) 0.7 Eos # (Auto) 0.2 Baso # (Auto) 0.1 Absolute Nucleated RBC 0.00 Nucleated RBC % 0.0 Sodium 137 Potassium 4.3 Chloride 100 L Carbon Dioxide 26 Anion Gap 11.0 BUN 21 H Creatinine 0.7 Estimated GFR (MDRD) 95 Glucose 94 Calcium 9.9 Urine Color YELLOW Urine Clarity CLEAR Urine pH 6.0 Ur Specific [place] 1.020 Urine Protein NEGATIVE Urine Glucose (UA) NEGATIVE Urine Ketones NEGATIVE Urine Occult Blood NEGATIVE Urine Nitrite NEGATIVE Urine Bilirubin NEGATIVE Urine Urobilinogen 0.2 (NORMAL) Ur Leukocyte Esterase NEGATIVE Ur Microscopic Review NOT INDICATED Urine Culture Comments NOT INDICATED - Rads (name of study) pelvic U/S Radiology: Prelim report reviewed (Impression: No acute process.), EMP read indepedently, See rad report PD MEDICAL DECISION MAKING - ED course Complexity details: reviewed old records, reviewed results, re-evaluated patient, considered differential, d/w patient ED course: 35-year-old female with brief intermittent left lower quadrant abdominal pain and history of constipation appears to have a normal formal pelvic ultrasound for 2 weeks post section no issues with sutures hematoma mass or significant free fluid. The area of tenderness was associated with a loop of bowel on the ultrasound. This is consistent with the patient's history and likely her pain is related to constipation. She is afebrile has a nontender exam now and a history consistent with pain related to constipation and I did not think that further imaging was required to prove this. She is given a dose of milk of magnesia and will follow up with the women's health. Departure - Departure Disposition: 01 Home, Self Care Clinical Impression: Constipation Qualifiers: Constipation type: drug induced constipation Qualified Code(s): K59.03 - Drug induced constipation Condition: Stable Instructions: ED Constipation Follow-Up: [facility] [Provider Group]
[2020-12-16] MEDS ORDERED: MAGNESIUM HYDROXIDE 2,400 MG/30 ML UDC PO STA (20:36)
[2020-12-16 20:42] VITALS: BP 115/61
== END 2020-12-16 20:42 | disposition home or self-care (01) ==
LOC: ED 18:26
DX: O99.63 Diseases of the digestive system complicating the puerperium (principal); K59.03 Drug induced constipation; T40.2X5A Adverse effect of other opioids, initial encounter
CPT/HCPCS: 36415; 76830; 76856; 80048; 81003; 85025; 93975; 99284; A9270; 81001; 87086

== ENCOUNTER 2020-12-18 09:46 | Outpatient (CLI) | payer OTHER | END 2020-12-18 11:00 | disposition home or self-care (01) | LOC: WFO 09:46 → OBS 09:48 → WFO 11:00 | PROVIDERS: ATTEND Obstetrics & Gynecology | DX: Z53.9 Procedure and treatment not carried out, unspecified reason (principal) | CPT/HCPCS: 99213 ==

== ENCOUNTER 2020-12-25 10:00 | Outpatient (CLI) | payer OTHER | END 2020-12-25 10:37 | disposition home or self-care (01) | LOC: WFO 10:00 → FBP 10:04 → WFO 10:37 | PROVIDERS: ATTEND Pediatrics | DX: Z53.9 Procedure and treatment not carried out, unspecified reason (principal) ==

== ENCOUNTER 2021-01-09 09:06 | Outpatient (CLI) | payer OTHER | END 2021-01-09 10:10 | disposition home or self-care (01) | LOC: WFO 09:06 → OBS 09:10 → WFO 10:10 | PROVIDERS: ATTEND Obstetrics & Gynecology | DX: Z39.1 Encounter for care and examination of lactating mother (principal) ==

== ENCOUNTER 2022-04-21 14:53 | Outpatient (CLI) | payer BC | END 2022-04-21 14:54 | disposition home or self-care (01) | LOC: LAB 14:53 | PROVIDERS: ATTEND Nurse Practitioner | DX: Z32.01 Encounter for pregnancy test, result positive (principal) | CPT/HCPCS: 36415; 84702 ==

== ENCOUNTER 2023-11-13 19:21 | Outpatient (CLI) | payer OTHER ==
--- NOTE | 2023-11-14 12:33 | Ultrasound Report ---
PROCEDURE: Pelvic w/Transvaginal INDICATIONS: PELVIC PAIN TECHNIQUE: Real-time scanning was performed of the pelvic organs, with image documentation. Additional endovagi nal scanning was necessary due to incomplete visualization of the adnexal and endometrial structures by transabdominal scanning. COMPARISON: None. FINDINGS: Uterus: Uterus is anteverted and normal in size at 8.5 x 6.4 x 6.4 cm. The myometrium is homogeneou s. The endometrium measures 5.1 mm in combined thickness. Ovaries: The right ovary measures 3.4 x 2.5 x 3.4 cm, with a calculated ovarian volume of 15.5 cc. The left ovary measures 3.0 x 2.5 x 2.4 cm, with a calculated ovarian volume of 10.8 cc. The ovaries have a normal sonographic appearance. Less than 12 follicles can be seen in each ovary. No adnexal masses are seen. No cystic lesions measuring greater than 3 cm. Other: No pathologic free abdominal or pelvic fluid. IMPRESSION: Unremarkable pelvic sonogram. Reviewed by: Shaniqua Cruz MD, PhD on 11/14/2023 12:32 PM PDT Approved by: Shaniqua Cruz MD, PhD on 11/14/2023 12:32 PM PDT Station ID: [id number]
== END 2023-11-13 19:22 | disposition home or self-care (01) ==
LOC: DI 19:21
PROVIDERS: ATTEND Obstetrics & Gynecology
DX: R10.2 Pelvic and perineal pain (principal)

== ENCOUNTER 2023-11-26 19:53 | Emergency (ER) | payer OTHER ==
[2023-11-26] MEDS: IPRATROPIUM/ALBUTEROL 3 ML NEB INH STA ×2 (20:20→22:05)
--- NOTE | 2023-11-26 20:25 | ED Physician Documentation ---
History of Present Illness - Stated complaint Stated Complaint: SOA/CP - Chief complaint Chief Complaint: Resp - Additonal information Additional information: Patient is a 38-year-old female presenting to the emergency department with chest tightness and shortness of breath symptoms have been going on suddenly since this afternoon. She notes she has had some viral URI symptoms including cough congestion sore throat. She has no fevers or chills. Patient unsure if she is at all. She Took Tylenol at home without significant relief for her symptoms She has no history of asthma or COPD. She notes chest pain feels like tightness when she is trying to take a deep breath. She has no history of DVT or PE. 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 - Present Medications Home Medications: Ambulatory Orders Medication Instructions Recorded Confirmed Albuterol Sulf [Ventolin Hfa 1 - 2 puffs INH Q4HR PRN #18 gm 11/26/23 Inhaler] predniSONE [Deltasone] 40 mg PO DAILY 5 Days #10 tablet 11/26/23 - Allergies Allergies/Adverse Reactions: Allergies Allergy/AdvReac Type Severity Reaction Status Date / Time sulfamethoxazole Allergy Unknown Verified 11/26/23 20:03 [From Bactrim] trimethoprim [From Bactrim] Allergy Unknown Verified 11/26/23 20:03 - Social History Does the pt smoke?: No Smoking Status: Never smoker Does the pt drink ETOH?: No - Immunizations Immunizations are current?: Yes - POLST Patient has POLST: No Results - Vitals Vitals: Vital Signs - 24 hr 11/26/23 11/26/23 11/26/23 19:57 20:20 22:10 Temperature 36.9 C Heart Rate 88 84 99 Respiratory 17 20 18 Rate Blood Pressure 139/99 H 107/62 O2 Saturation 96 100 Oxygen O2 Source Room air - Labs Labs: Laboratory Tests 11/26/23 11/26/23 11/26/23 20:52 20:52 21:10 WBC 9.1 RBC 4.98 Hgb 14.6 Hct 44.9 MCV 90.2 MCH 29.3 MCHC 32.5 RDW 13.2 Plt Count 273 MPV 9.5 Neut # (Auto) 5.5 Lymph # (Auto) 2.4 [place] # (Auto) 0.8 Eos # (Auto) 0.4 Baso # (Auto) 0.0 Absolute Nucleated RBC 0.00 Nucleated RBC % 0.0 Sodium 136 Potassium 3.7 Chloride 103 Carbon Dioxide 26 Anion Gap 7.0 BUN 7 Creatinine 0.8 Estimated GFR (MDRD) 80 L Glucose 102 Calcium 9.5 Magnesium 1.8 Total Bilirubin 0.8 AST 18 ALT 27 Alkaline Phosphatase 60 Troponin I High Sens < 2.3 L Total Protein 7.3 Albumin 4.4 Globulin 2.9 Albumin/Globulin Ratio 1.5 Urine HCG, Qual NEGATIVE - Rads (name of study) chest x-ray Relevant Findings:: EMP independent interpretation of test (No acute findings) PD Medical Decision Making - ED course ED course: Patient is a 38-year-old female with no significant past medical history presents to the emergency department with chest tightness and shortness of breath. And persistent cough. Patient's symptoms have been going on for the past few days but worsened today with worsening shortness of breath. She denies any nausea vomiting dizziness or lightheadedness. Patient on arrival has mild expiratory wheeze on auscultation. In bilateral upper lung victor on auscultation. Will obtain basic labs given reports of chest tightness as well as order a breathing treatment with course of oral steroids here in emergency department to help with symptoms. Respiratory therapy was called on patient's arrival. Labs here in the emergency department are reassuring no signs of anemia to explain shortness of breath troponin is within normal range and EKG shows normal sinus rhythm with no signs of arrhythmias to explain patient's symptoms. Chest X-ray: No acute radiographic abnormality on this limited single view study. Patient feeling significantly better after breathing treatment here in emergency department. Patient required second breathing treatment here in emergency department and feels completely better her chest pain and tightness resolved her shortness of breath resolved 3 auscultation of lungs showed no persistent expiratory wheezing. Patient feels safe for discharge home at this time.Patient given albuterol inhaler for symptoms at home and course of steroids to help with any persistent inflammation. Patient will return with any other new or worsening symptoms. Departure - Departure Disposition: Home, Self Care Clinical Impression: Reactive airway disease, Cough, Congestion of throat, Shortness of breath Condition: Good Instructions: ED Viral Syndrome, ED Reactive Airway Disease Comments: You were seen here in the emergency department for your shortness of breath your workup here showed no acute findings symptoms most likely secondary to viral URI symptoms. I sent an inhaler to your pharmacy as well as a course of steroids to help with inflammation. Monitor your symptoms closely at home if you develop any worsening shortness of breath chest tightness dizziness lightheadedness or any other new or worsening symptoms return to the emergency department Forms: PCP List
[2023-11-26] MEDS: predniSONE 20 MG TABLET PO STA (20:31)
[2023-11-26 20:57] LABS: BASOPHILS % (AUTO) 0.4 %; EOSINOPHILS # (AUTO) 0.4 10^3/uL (0.0-0.7); EOSINOPHILS % (AUTO) 4.2 %; HCT - HEMATOCRIT 44.9 % (37.0-47.0); HGB - HEMOGLOBIN 14.6 g/dL (12.0-16.0); LYMPHOCYTES # (AUTO) 2.4 10^3/uL (1.5-3.5); LYMPHOCYTES % (AUTO) 25.9 %; MEAN CORPUSCULAR HEMOGLOBIN 29.3 pg (27.0-31.0); MEAN CORPUSCULAR HGB CONC 32.5 g/dL (32.0-36.0); MEAN CORPUSCULAR VOLUME 90.2 fL (81.0-99.0); MEAN PLATELET VOLUME 9.5 fL (7.9-10.8); MONOCYTES # (AUTO) 0.8 10^3/uL (0.0-1.0); MONOCYTES % (AUTO) 8.8 %; NEUTROPHILS # (AUTO) 5.5 10^3/uL (1.5-6.6); NEUTROPHILS % (AUTO) 60.5 %; PLT - PLATELET COUNT 273 10^3/uL (130-450); RED BLOOD COUNT 4.98 10^6/uL (4.20-5.40); RED CELL DISTRIBUTION WIDTH 13.2 % (12.0-15.0); WHITE BLOOD COUNT 9.1 x10^3/uL (4.8-10.8)
[2023-11-26 21:17] LABS: TROPONIN I HIGH SENSITIVITY < 2.3 ng/L (2.3-14.8)
[2023-11-26 21:25] LABS: ALBUMIN 4.4 g/dL (3.2-5.5); ALBUMIN/GLOBULIN RATIO 1.5 (1.0-2.2); ALKALINE PHOSPHATASE 60 IU/L (42-121); ALT ALANINE AMINOTRANSFERASE 27 IU/L (10-60); AST ASPARTATE AMINOTRANSFERASE 18 IU/L (10-42); BILIRUBIN,TOTAL 0.8 mg/dL (0.2-1.0); BUN - BLOOD UREA NITROGEN 7 mg/dL (6-20); CALCIUM 9.5 mg/dL (8.5-10.3); CARBON DIOXIDE - CO2 26 mmol/L (21-32); CHLORIDE 103 mmol/L (101-111); CREATININE 0.8 mg/dL (0.6-1.3); GFR - MDRD 80 (>89); GLUCOSE 102 mg/dL (74-104); MAGNESIUM 1.8 mg/dL (1.7-2.3); POTASSIUM 3.7 mmol/L (3.5-4.5); SODIUM 136 mmol/L (135-145); TOTAL PROTEIN 7.3 g/dL (6.4-8.9)
--- NOTE | 2023-11-26 21:28 | XRAY Report ---
PROCEDURE: Chest 1V INDICATIONS: sob TECHNIQUE: One view of the chest was acquired. COMPARISON: None. FINDINGS: Surgical changes and devices: None. Lungs and pleura: The top of the lungs are not included. No dense consolidation or pleural effusion Mediastinum: Normal heart size Bones and chest wall: Unremarkable IMPRESSION: No acute radiographic abnormality on this limited single view study. Reviewed by: Tereso Galaviz MD on 11/26/2023 9:26 PM PDT Approved by: Tereso Galaviz MD on 11/26/2023 9:26 PM PDT Station ID: [id number]
[2023-11-26 21:37] LABS: HCG UR QUAL NEGATIVE
[2023-11-26 22:42] VITALS: BP 147/91; O2SAT 98
== END 2023-11-26 22:40 | disposition home or self-care (01) ==
LOC: ED 19:53
DX: J45.909 Unspecified asthma, uncomplicated (principal)
CPT/HCPCS: 36415; 71045; 80053; 81025; 83735; 84484; 85025; 93005; 94640; 94664; 99284; J7512